=== PATIENT | male | born 1945 | race Caucasian/White ===

== ENCOUNTER 2018-09-22 12:43 | Inpatient (IN) | payer MEDICARE, OTHER | END 2018-09-25 16:25 | LOC: PCU 3S 09-24 07:44 → ER 12:43 → ED HOLD 17:02 | DX: I48.91 Unspecified atrial fibrillation (principal); I10 Essential (primary) hypertension; I25.10 Atherosclerotic heart disease of native coronary artery without angina pectoris ==

== ENCOUNTER 2018-11-24 13:04 | Emergency (ER) | payer MEDICARE, OTHER ==
[~2018-11-24] VITALS: Ht 175.3 cm; Wt 180.0 kg
[~2018-11-24 13:04] MED LIST: ASPI81TA52 PO; ATEN25TA PO; BICA50TA7 PO; CETI5TAB8 PO; CHOL10002 PO; CYA500T PO; DONE10TA7 PO; EDOX60TA PO; FLO0.4C PO; OXYB10TA4 PO; SERT50TA10 PO; TERA5CAP4 PO; TRAZ-218 PO
[2018-11-24 14:00] LABS: BASOPHILS # (AUTO) 0.1 X10'3 (0-0.2); BASOPHILS % (AUTO) 1.2 % (0-1); EOSINOPHILS # (AUTO) 0.2 X10'3 (0-0.9); EOSINOPHILS % (AUTO) 2.9 % (0-6); HEMATOCRIT 39.5 % (42.0-52.0); HEMOGLOBIN 13.4 g/dl (14.0-17.9); LYMPHOCYTES # (AUTO) 1.9 X10'3 (1.1-4.8); LYMPHOCYTES % (AUTO) 27.2 % (21-51); MEAN CORPUSCULAR HEMOGLOBIN 28.1 PG (27.0-31.0); MEAN CORPUSCULAR HGB CONC 33.9 g/dL (33.0-36.5); MEAN CORPUSCULAR VOLUME 82.9 FL (78-98); MEAN PLATELET VOLUME 8.5 FL (7.4-10.4); MONOCYTES # (AUTO) 0.5 X10'3 (0-0.9); MONOCYTES % (AUTO) 7.7 % (2-12); NEUTROPHILS # (AUTO) 4.4 X10'3 (1.8-7.7); PLATELET COUNT 251 X10'3 (140-440); RED BLOOD COUNT 4.77 X10'6 (4.70-6.10); RED CELL DISTRIBUTION WIDTH 15.8 % (11.5-14.5); WHITE BLOOD COUNT 7.2 X10'3 (4.5-11.0)
[2018-11-24 14:20] LABS: ALANINE AMINOTRANSFERASE 25 U/L (12-78); ALBUMIN 3.6 G/DL (3.4-5.0); ALKALINE PHOSPHATASE 115 IU/L (46-116); ANION GAP 6 (8-16); ASPARTATE AMINO TRANSFERASE 24 U/L (10-37); BILIRUBIN,TOTAL 0.2 MG/DL (0.1-1.0); BLOOD UREA NITROGEN 25 MG/DL (7-18); BUN/CREATININE RATIO 20.2 (5.4-32.0); CALCIUM 9.3 MG/DL (8.5-10.1); CHLORIDE 107 MMOL/L (99-107); CREATININE 1.24 MG/DL (0.60-1.10); GLUCOSE 100 MG/DL (70-104); POTASSIUM 4.5 MMOL/L (3.5-5.1); SODIUM 142 MMOL/L (135-145); TOTAL CARBON DIOXIDE 29.5 MMOL/L (24-32); TOTAL PROTEIN 7.3 G/DL (6.4-8.2); eGFR 57 ML/MIN
[2018-11-24 14:29] LABS: ETHANOL < 0.010 GM/DL (0.0-0.010)
[2018-11-24 14:43] LABS: URINE AMPHETAMINE SCREEN NEGATIVE (Neg); URINE BARBITUATE SCREEN NEGATIVE (Neg); URINE BENZODIAZEPINES SCREEN NEGATIVE (Neg); URINE CANNABINOID SCREEN POSITIVE (Neg); URINE COCAINE SCREEN NEGATIVE (Neg); URINE METHADONE SCREEN NEGATIVE (Neg); URINE OPIATE SCREEN NEGATIVE (Neg); URINE PHENCYCLIDINE SCREEN NEGATIVE (Neg)
[2018-11-24 15:22] LABS: CLARITY,URINE CLEAR (Clear); COLOR,URINE YELLOW (Yellow); GLUCOSE, URINE NEGATIVE (Neg); KETONES,URINE NEGATIVE (Neg); LEUKOCYTE ESTERASE ,URINE NEGATIVE (Neg); NITRITES, URINE NEGATIVE (Neg); OCCULT BLOOD,URINE NEGATIVE (Neg); PROTEIN,URINE NEGATIVE (Neg); UA COLLECTION TYPE CLN CATCH MIDSTREAM; UROBILINOGEN,URINE 0.2 E.U/dL (0.2-1.0)
--- NOTE | 2018-11-24 18:14 | NUR ---
Received report from JESSICA Unger. Patient is awake and alert. Sitting up at bedside.
--- NOTE | 2018-11-24 18:34 | NUR ---
Patient refused dinner tray.
[2018-11-24] MEDS: traZODone 50mg tablet PO SCH (21:56)
[2018-11-24] MEDS: cetirizine 10mg tablet PO SCH (21:56)
[2018-11-24] MEDS: donepezil 5mg tablet PO SCH (21:56)
[2018-11-24] MEDS: terazosin 5mg capsule PO SCH (21:56)
--- NOTE | 2018-11-25 06:30 | NUR ---
Awake at change of shift. Up to the bathroom using his walker. In good spirits. Talking in a nonsensical manner about "the old [facility] [employer] giving away peanut butter and jelly sandwiches. But I never got one of those sandwiches."
[2018-11-25] MEDS: vitamin D (cholecalciferol) 1,000 unit tablet PO SCH (07:58)
[2018-11-25] MEDS: atenolol 25mg tablet PO SCH (07:58)
[2018-11-25] MEDS: tamsulosin 0.4mg capsule PO SCH (07:59)
[2018-11-25] MEDS: sertraline 50mg tablet PO SCH (07:59)
[2018-11-25] MEDS: cyanocobalamin 500mcg tablet PO SCH (07:59)
[2018-11-25] MEDS: aspirin 81mg tablet.DR PO SCH (07:59)
[2018-11-25] MEDS: EDOXABAN TOSYLATE 60 MG PO SCH (08:00)
[2018-11-25] MEDS: oxybutynin 5mg tablet PO SCH ×2 (08:00→20:14)
--- NOTE | 2018-11-25 08:30 | NUR ---
Served breakfast. Ate 100% of his meal.
--- NOTE | 2018-11-25 10:30 | NUR ---
Sleeping at this time. In line of sight of staff at all times.
--- NOTE | 2018-11-25 12:30 | NUR ---
Sits up at side of bed in between napping. Gets up to use the bathroom as needed. Assisted with holding open the bathroom door as patient navagates his walker.
--- NOTE | 2018-11-25 14:30 | NUR ---
Served lunch. Ate 100% of his meal. Continues to call out to staff and make nonsensical statements about random subjects. Feels comforted when staff listens to him and agrees with him.
--- NOTE | 2018-11-25 16:30 | NUR ---
Sleeping at this time. Color and breathing WNL.
--- NOTE | 2018-11-25 17:39 | NUR ---
Continues to rest comfortably in bed.
--- NOTE | 2018-11-25 18:10 | NUR ---
EKG obtained on patient due to c/o of chest pressure over epigastric region and across chest radiating to bilateral arms onset approx. 1 hour ago. EKG obtained by Julissa LOPEZ, EKG reviewed by Dr. shepard, Dr. shepard stated to place verbal order for troponin series per protocol. Patient will be placed on surveillance monitor by rosa m LOPEZ.
--- NOTE | 2018-11-25 18:11 | NUR ---
PT C/O PRESSURE TO HIS STERNAL AREA, SHOULDERS AND ARMS. HEART RATE IN 40'S UPON VITALS CHECK, PT HAD NOT C/O PRIOR TO THAT. APICAL PULSE WAS 36-40 ON AUSCULTATION. EKG DONE, NOTIFIED, SEE NEW ORDERS. PT PLACED ON PORTABLE MONITOR AT BEDSIDE, IN A FIB, BRADYCARDIA.
[2018-11-25] MEDS: cetirizine 10mg tablet PO SCH (20:13)
[2018-11-25] MEDS: donepezil 5mg tablet PO SCH (20:13)
[2018-11-25] MEDS: traZODone 50mg tablet PO SCH (20:14)
[2018-11-25] MEDS: terazosin 5mg capsule PO SCH (20:14)
--- NOTE | 2018-11-25 21:09 | NUR ---
PATIENT REMAINS ON CARDIAC MONITORING SINCE HE WAS DISCOVERED TO HAVE A LOW HEART RATE PRIOR TO CHANGE OF SHIFT. PATIENT'S HEART RATE REMAINS STEADILY IN THE 50S, OCCASIONALLY BUMPING INTO THE 60S AND LESS FREQUENTLY DROPPING INTO THE 40S. PATIENT DENIES CP OR SOB AT THIS TIME. WILL CONTINUE TO CLOSELY MONITOR HIM.
--- NOTE | 2018-11-25 23:59 | NUR ---
Patient sleeping comfortably on his left side.
--- NOTE | 2018-11-26 01:36 | NUR ---
Patient is sleeping on his left side.
--- NOTE | 2018-11-26 03:03 | NUR ---
Patient sleeping on right side.
--- NOTE | 2018-11-26 04:32 | NUR ---
Patient is sleeping.
--- NOTE | 2018-11-26 07:23 | NUR ---
ambulated to bathroom with walker no assistance needed.
[2018-11-26] MEDS: EDOXABAN TOSYLATE 60 MG PO SCH (08:00)
[2018-11-26] MEDS: vitamin D (cholecalciferol) 1,000 unit tablet PO SCH (08:00)
[2018-11-26] MEDS: atenolol 25mg tablet PO SCH (08:00)
[2018-11-26] MEDS: sertraline 50mg tablet PO SCH (08:01)
[2018-11-26] MEDS: aspirin 81mg tablet.DR PO SCH (08:01)
[2018-11-26] MEDS: cyanocobalamin 500mcg tablet PO SCH (08:01)
[2018-11-26] MEDS: tamsulosin 0.4mg capsule PO SCH (08:01)
[2018-11-26] MEDS ORDERED: oxybutynin 5mg tablet PO SCH (08:17)
[2018-11-26] MEDS: oxybutynin 5mg tablet PO SCH ×2 (08:57→19:42)
--- NOTE | 2018-11-26 09:20 | NUR ---
Pt stated he no longer had prostate ca. called [facility] to speak to lee at [place] for medical information. stated unable to find cancer in pt history. stated CT noted pt was to have biopsy done on prostate 10/16/17. stated will contact MD and nurse at [facility] and will call back. PT urologist is Dr. Quiroz [phone]. Awaiting call back from [facility] .
--- NOTE | 2018-11-26 09:41 | NUR ---
message left for dr. hendrickson urologist.
--- NOTE | 2018-11-26 11:06 | NUR ---
REPORT KEY DALLAS RN ; PATIETN SLEEPING ON HIS LEFT SIDE RR EVEN UNLABORED
--- NOTE | 2018-11-26 11:45 | NUR ---
SPOKE TO DR VANEGAS SD UROLOGIST AT [facility] PATIENT'S [facility] MEDICATION[facility]. 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 PER DR VANEGAS, THE PATIENT RECEIVED AN INJECTION OF ELIGARD, A TESTOSTERONE DARIO, IN AUGUST AND THAT ELIGARD " CAN CAUSE SIGNIFICANT MOOD SWINGS". PER DR VANEGAS, THE PATIENT SHOULD NOT BE RECEIVING CASODEX AT THIS TIME. PER DR VANEGAS, THE PATIENT IS SEEIG DR ELLIS UROLOGIST AT THE SD HERE IN [place].
--- NOTE | 2018-11-26 11:55 | NUR ---
PATIENT APPEARS TO BE SLEEPING ON RIGHT SIDE, EYES CLOSED RR EVEN AND UNLABORED
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
--- NOTE | 2018-11-26 15:00 | NUR ---
PATIENT AMBULATED TO BATHROOM, DUE TO RIGHT SIDED WEAKNESS, PATIENT UNBLE TOOPEN THE BATHROOM DOOR. STADY ON HIS FEET
--- NOTE | 2018-11-26 17:21 | NUR ---
PATIENT'S [facility]S BOYFRIEND MUKUL MUÑOZ IS VISITING. PATIENT ASKED AND WANTED TO SEE [facility] BOYFRIEND
--- NOTE | 2018-11-26 17:39 | NUR ---
CONTACT [facility] [id number] MUKUL MUÑOZ [id number]
--- NOTE | 2018-11-26 18:36 | NUR ---
1500 PATIENT LYING ON BACK WITH EYES CLOSED. WHEN APPROACHED, CARRI OPENED HIS EYES AND ASKED HOW I WAS DOING
--- NOTE | 2018-11-26 18:40 | NUR ---
ON PHONE WITH PHARMACIST TO VERIFY EQUIVALANT OF EDOXABAN 60 MG DAILY. XARELTO PER PHARMACIST IS THE CLOSEST, NO FORMULARY EQUIVALENT PER PHARMACIST. XARELTO 20 MG WITH EVENING MEAL
[2018-11-26] MEDS: traZODone 50mg tablet PO SCH (19:40)
[2018-11-26] MEDS: cetirizine 10mg tablet PO SCH (19:40)
[2018-11-26] MEDS: donepezil 5mg tablet PO SCH (19:41)
[2018-11-26] MEDS: terazosin 5mg capsule PO SCH (19:41)
[2018-11-26] MEDS: rivaroxaban 20mg tablet PO SCH (19:42)
--- NOTE | 2018-11-26 20:00 | NUR ---
The patient has been resting on his bed and gets up periodically to use the bathroom. His speech was mildly garbled but understandable. He was disorganized and when asked questions he rambled on about the past. He did state he felt depressed when asked directly but denied being suicidal. He denies hearing voices.
--- NOTE | 2018-11-26 21:44 | NUR ---
Per [facility] his packet is at the [facility] facility, [facility]
--- NOTE | 2018-11-26 22:59 | NUR ---
The patient currently appears to be asleep
--- NOTE | 2018-11-27 00:32 | NUR ---
The patient appears to be asleep
--- NOTE | 2018-11-27 02:13 | NUR ---
The patient attempting to get out of bed and thought it was 8 in the morning. He was made aware of the time and is now trying to go back to sleep.
--- NOTE | 2018-11-27 04:41 | NUR ---
The patient appears to be sleeping
--- NOTE | 2018-11-27 06:30 | NUR ---
Pt is lying in bed, appears to be sleeping.
--- NOTE | 2018-11-27 07:47 | NUR ---
Pt up to use BR with 4-wheel walker.
[2018-11-27] MEDS: atenolol 25mg tablet PO SCH (08:00)
[2018-11-27] MEDS: oxybutynin 5mg tablet PO SCH (08:11)
[2018-11-27] MEDS: rivaroxaban 20mg tablet PO SCH (08:11)
[2018-11-27] MEDS: tamsulosin 0.4mg capsule PO SCH (08:11)
[2018-11-27] MEDS: sertraline 50mg tablet PO SCH (08:11)
[2018-11-27] MEDS: vitamin D (cholecalciferol) 1,000 unit tablet PO SCH (08:11)
[2018-11-27] MEDS: aspirin 81mg tablet.DR PO SCH (08:11)
[2018-11-27] MEDS: cyanocobalamin 500mcg tablet PO SCH (08:11)
--- NOTE | 2018-11-27 09:31 | NUR ---
Pt is napping in bed.
--- NOTE | 2018-11-27 11:30 | NUR ---
[facility] evaluated pt, he is not renewing the 5150 hold. Gavino spoke with pt's tonytye Ch, he will go and live with her. Family to come pick pt up around 1500.
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
--- NOTE | 2018-11-27 13:44 | NUR ---
Pt ate his lunch, requested a warm blanket.
[2018-11-27 15:58] VITALS: BP 124/86
== END 2018-11-27 16:03 | disposition home or self-care (01) ==
LOC: ER 13:05
DX: R45.851 Suicidal ideations (principal); N18.9 Chronic kidney disease, unspecified; F12.90 Cannabis use, unspecified, uncomplicated; F15.90 Other stimulant use, unspecified, uncomplicated; I25.10 Atherosclerotic heart disease of native coronary artery without angina pectoris; G89.29 Other chronic pain; Z98.61 Coronary angioplasty status; Z79.82 Long term (current) use of aspirin; Z79.899 Other long term (current) drug therapy
CPT/HCPCS: 36415; 80053; 80305; 80320; 81003; 84443; 84484; 85025; 93005; 99285